=== PATIENT | female | born 1995 | race American Indian/Alaskan Native ===

== ENCOUNTER 2019-06-12 22:09 | Emergency (ER) | payer OTHER ==
--- NOTE | 2019-06-12 23:19 | Emergency Department Report ---
Chief Complaint: Anxiety Stated Complaint: SMOKING MARIJUANA/ANXIETY Time Seen by Provider: 06/12/19 22:45 - HPI History of Present Illness: This is a 23-year-old female who presents to the ED complaining of having a panic attack after smoking marijuana around 9:00 PM tonight. Patient states her last anxiety attack was in August of last year when she was told she had an anxiety disorder and was told to follow-up. Patient states that she has not followed up since then. She denies any fever/chills/nausea or vomiting, chest pain or shortness of breath - ROS Review of Systems: As noted in HPI - Exam Vital Signs: Vital Signs 06/12/19 22:13 Temperature 98.1 F Pulse Rate 111 H Respiratory 15 Rate Blood Pressure 154/105 O2 Sat by Pulse 100 Oximetry Physical Exam: GENERAL: Alert and oriented x3, no apparent distress, Normal Gait, atraumatic. HEAD: Head is normocephalic and a-traumatic. EYES: Extra ocular muscles are intact. Pupils are equal, round, and reactive to light and accommodation. MOUTH:Mouth is well hydrated and without lesions. Tonsils nonerythematous or swollen, Uvula midline, Tongue not elevated. Mucous membranes are moist. Posterior pharynx clear, no exudate or lesions. Patent airways. NECK: Supple. Non edematous, No carotid bruits. No lymphadenopathy or thyromegaly. No C-spine tenderness LUNGS: Symetrical with respiration, No wheezing, no rales or crackles, CTAB. HEART: S1, S2 present, regular rate and rhythm without murmur, no rubs, no gallops. Non tender to palpation SKIN: Warm and dry, No lesions, No ulceration or induration present. MSE screening note: Focused history and physical exam performed. Due to findings the following was ordered: ED Medical Decision Making - Medical Decision Making 23-year-old female presents with panic attack after marijuana use. I discussed with patient cessation of marijuana as this may cause panic attacks. Also discussed with patient to follow-up with the therapist. Referrals were given to patient. Patient was sitting in ED room in no acute distress no respiratory distress. All vital signs are normal. Patient understands instructions. I discussed the patient's hydrate increase. At this time patient will be discharged home with instructions to follow-up with her primary care physician ED Disposition for MSE Clinical Impression: Panic attack, Cannabis use disorder, mild, abuse Disposition: [id number] TO HOME OR SELFCARE Is pt being admited?: No Does the pt Need Aspirin: No Condition: Stable Instructions: Cannabis Abuse (ED), Anxiety (ED) Additional Instructions: Make sure to follow up with the primary care physician as discussed. If you have any worsening symptoms or develop new symptoms please return to ED immediately. Referrals: PRIMARY CARE, [Primary Care Provider] - 3-5 Days [facility] [Outside] - 3-5 Days [facility] [Outside] - 3-5 Days Forms: Work/School Release Form(ED) Time of Disposition: 23:34
[2019-06-12 23:50] VITALS: BP 147/76
== END 2019-06-12 23:50 | disposition home or self-care (01) ==
LOC: ED 22:09
DX: F41.0 Panic disorder [episodic paroxysmal anxiety] (principal); F12.10 Cannabis abuse, uncomplicated
CPT/HCPCS: 99282

== ENCOUNTER 2021-04-04 16:33 | Emergency (ER) | payer OTHER | END 2021-04-05 00:38 | disposition left against medical advice (07) | LOC: ED 16:33 | DX: G58.8 Other specified mononeuropathies (principal); Z53.21 Procedure and treatment not carried out due to patient leaving prior to being seen by health care provider ==